=== PATIENT | female | born 1995 | race Two or more races ===

== ENCOUNTER 2023-11-20 10:32 | Emergency (ER) | payer SELFPAY ==
[~2023-11-20] VITALS: Ht 165.1 cm; Wt 105.0 kg
[2023-11-20] MEDS ORDERED: ONDANSETRON ODT 4 MG TAB PO ONE (11:00)
[2023-11-20 11:24] LABS: Basophils # (auto) 0 10 ^3/uL (0-0.2); Basophils % (auto) 0.2 % (0.0-2.0); Eosinophils # (auto) 0 10 ^3/uL (0-0.8); Eosinophils % (auto) 0.1 % (0.0-7.0); Hematocrit 39.7 % (36.0-46.0); Hemoglobin 13.4 g/dL (12.2-16.2); Lymphocytes # (auto) 1.4 10 ^3/uL (0.4-5.4); Mean Corpuscular Hemoglobin 27.4 pg (28.0-32.0); Mean Corpuscular Hgb Conc. 33.8 g/dL (32.0-36.0); Mean Corpuscular Volume 81.3 fL (80.0-100.0); Monocytes % (auto) 5.6 % (0.0-12.0); Neutrophils % (auto) 86.1 % (37.0-80.0); Red Blood Cells 4.88 10^6/uL (4.0-5.20); Red Cell Distribution Width 13.5 % (11.8-14.3); White Blood Cell 17.4 10^3/uL (4.4-10.8)
[2023-11-20 11:37] LABS: Chloride 107 mmol/L (98-107); Potassium 3.9 mmol/L (3.5-5.1); Sodium 139 mmol/L (136-145)
[2023-11-20 11:38] LABS: Anion Gap 7 (5-15); Calcium 9.8 mg/dL (8.5-10.1); Carbon Dioxide 25 mmol/L (20-30)
[2023-11-20 11:43] LABS: BUN/Creatinine Ratio 13.7 (10.0-20.0); Blood Urea Nitrogen 10 mg/dL (9-23); Glucose 92 mg/dL (74-106)
[2023-11-20 13:49] LABS: Urine Bacteria NONE SEEN /hpf (None Seen); Urine Hyaline Cast FEW /lpf (0 - 2); Urine Mucus FEW (None Seen); Urine WBC 3 /hpf (0 - 5)
[2023-11-20 14:22] LABS: Urine Protein, UAD Trace (Negative); Urine Specific Gravity 1.015 (1.001-1.035)
[2023-11-20 14:23] LABS: Urine Blood Negative /uL (Negative); Urine Clarity CLOUDY (Clear); Urine Color Amber (Yellow); Urine Urobilinogen Normal (Negative)
[2023-11-20] MEDS ORDERED: ZOFR4T PO (14:35)
[2023-11-20 14:50] VITALS: BP 145/91; TEMP 97
[2023-11-20 14:51] VITALS: PULSE 76; RESP 19; O2SAT 99
== END 2023-11-20 14:53 | disposition home or self-care (01) ==
LOC: ER 10:32
DX: B34.9 Viral infection, unspecified (principal); R10.2 Pelvic and perineal pain; R53.1 Weakness; R11.10 Vomiting, unspecified; Z98.890 Other specified postprocedural states; Z87.891 Personal history of nicotine dependence
CPT/HCPCS: 36415; 74176; 80048; 81001; 84702; 85025; 99284; Q0162